=== PATIENT | male | born 1970 ===

== ENCOUNTER 2016-09-22 08:12 | Outpatient (CLI) | payer BC ==
[2016-09-22 09:24] LABS: ALT (SGPT) 23 U/L (0-55); AST (SGOT) 24 U/L (5-34); Albumin 4.3 g/dL (3.5-5.0); Alkaline Phosphatase 59 U/L (40-150); Anion Gap 14 mmol/L (10-20); BUN (Urea Nitrogen) 16 mg/dL (8.9-20.6); Calc. Creatinine Clearance 0 mL/min (70-130); Calcium 9.3 mg/dL (7.8-10.44); Carbon Dioxide 28 mmol/L (22-29); Chloride 101 mmol/L (98-107); Cholesterol 222 mg/dL (< 200 Desired); Estimated GFR-MDRD Greater than 90; Globulin 2.8 g/dL (2.4-3.5); Glucose 99 mg/dL (70-105); HDL Cholesterol 74 mg/dL (>60 Neg Risk); LDL Cholesterol, Calculated 134 mg/dL; Potassium 4.1 mmol/L (3.5-5.1); Protein, Total 7.1 g/dL (6.0-8.3); Sodium 139 mmol/L (136-145); Triglycerides 72 mg/dL (Less than 150)
[2016-09-22 09:45] LABS: Free T4 (Free Thyroxine) 0.91 ng/dL (0.70-1.48); Thyroid Stimulating Hormone 2.3575 uIU/mL (0.35-4.94)
[2016-09-22 10:14] LABS: Hemoglobin A1c 5.4 % (4.0-6.0)
== END 2016-09-22 08:13 ==
LOC: NAV LAB 08:12
PROVIDERS: ATTEND Family Medicine
DX: E78.5 Hyperlipidemia, unspecified (principal); R73.09 Other abnormal glucose
CPT/HCPCS: 80053; 80061; 83036; 83525; 84439; 84443